=== PATIENT | female | born 1965 | race Caucasian/White ===

== ENCOUNTER 2017-04-23 13:07 | Outpatient (CLI) | payer BC | END 2017-04-23 13:08 | disposition home or self-care (01) | LOC: BICMAMMO 13:07 | PROVIDERS: ATTEND Family Medicine | DX: Z12.31 Encounter for screening mammogram for malignant neoplasm of breast (principal) | CPT/HCPCS: 77063; 77067 ==

== ENCOUNTER 2020-05-12 12:56 | Outpatient (CLI) | payer BC ==
--- NOTE | 2020-05-12 13:38 | MMO ---
Bilateral MAMMO Bilat Screen [facility]. CLINICAL HISTORY: Patient is 54 years old and is seen for screening. The patient has no family history of breast cancer. The patient has no personal history of cancer. The patient has a history of right needle biopsy in 2012 - benign. VIEWS: The views performed were: bilateral craniocaudal with tomosynthesis and bilateral mediolateral oblique with tomosynthesis. FILMS COMPARED: The present examination has been compared to prior imaging studies performed at [facility] on 04/23/2017, 04/24/2018 and 04/28/2019, and at [facility] on 04/09/2016. This study has been interpreted with the assistance of computer-aided detection. MAMMOGRAM FINDINGS: There are scattered fibroglandular densities. There is a stable nodule seen in the right breast. There are no suspicious masses, suspicious calcifications, or new areas of architectural distortion. IMPRESSION: THERE IS NO MAMMOGRAPHIC EVIDENCE OF MALIGNANCY. A ROUTINE FOLLOW-UP MAMMOGRAM IN 1 YEAR IS RECOMMENDED. THE RESULTS OF THIS EXAM WERE SENT TO THE PATIENT. ACR BI-RADS Category 2 - Benign finding MAMMOGRAPHY NOTE: 1. A negative mammogram report should not delay a biopsy if a dominant of clinically suspicious mass is present. 2. Approximately 10% to 15% of breast cancers are not detected by mammography. 3. Adenosis and dense breasts may obscure an underlying neoplasm. Reported by: LANCE CLOUD MD Electonically Signed: [id number]
== END 2020-05-12 12:57 | disposition home or self-care (01) ==
LOC: BICMAMMO 12:56
PROVIDERS: ATTEND Family Medicine
DX: Z12.31 Encounter for screening mammogram for malignant neoplasm of breast (principal); Z91.89 Other specified personal risk factors, not elsewhere classified
CPT/HCPCS: 77063; 77067

== ENCOUNTER 2021-01-12 09:35 | Outpatient (CLI) | payer BC ==
[2021-01-12 11:38] LABS: Hemoglobin 13.2 g/dL (12.0-15.5); Mean Corpuscular Volume 93.6 fl (81.6-98.3); Mean Platelet Volume 10.2 fl (7.4-10.4); Platelet Count 245 10x3/uL (150-450); White Blood Cell (WBC) Count 6.9 10x3/uL (3.5-10.5)
[2021-01-12 11:52] LABS: Anion Gap 13 mmol/L (10-20); BUN (Urea Nitrogen) 11 mg/dL (9.8-20.1); Calc. Creatinine Clearance 0 mL/min (70-130); Calcium 10.2 mg/dL (7.8-10.44); Carbon Dioxide 27 mmol/L (22-29); Chloride 106 mmol/L (98-107); Glucose 81 mg/dL (70-105); Potassium 5.1 mmol/L (3.5-5.1); Sodium 141 mmol/L (136-145)
[2021-01-12 11:54] LABS: Bilirubin Neg (Negative); Blood, Urine Negative (Negative); Clarity Clear (Clear); Glucose, Urine (Dipstick) Normal (Negative); Ketone, Urine Negative (Negative); Leukocyte 25 (Negative); Nitrite Negative (Negative); Protein, Urine (Dipstick) Negative (Neg-Trace); Specific Gravity, Urine 1.005 (1.002-1.036); Urobilinogen Normal mg/dL (Less than 2); pH, Urine 6.5 (5.0-9.0)
[2021-01-12 12:29] LABS: Bacteria/HPF None Seen HPF (None Seen); RBC/HPF 0-3 HPF (0-3); Squamous Epithelial 0-3 HPF (0-3); WBC/HPF 0-3 HPF (0-3)
[2021-01-13 00:23] LABS: SARS-CoV-2 PCR by NAA Not Detected (NotDetected)
== END 2021-01-12 09:36 | disposition home or self-care (01) ==
LOC: LABBT 09:35
PROVIDERS: ATTEND Urology
DX: Z01.818 Encounter for other preprocedural examination (principal); N35.92 Unspecified urethral stricture, female; Z20.822 Contact with and (suspected) exposure to COVID-19
CPT/HCPCS: 80048; 81001; 85027; 87086; 93005; 93010; U0003; U0005

== ENCOUNTER 2021-01-17 06:21 | Day surgery (SDC) | payer BC ==
[2021-01-16 13:15] VITALS: BMI 20.9
[2021-01-17] MEDS ORDERED: Levofloxacin 500 mg/D5W 100 ml Premix Bag ONE (07:34)
[2021-01-17] MEDS ORDERED: Fentanyl 100 MCG/2 ML VIAL ONE (08:05)
[2021-01-17] MEDS ORDERED: Ketorolac Tromethamine 30 MG/ML VIAL ONE (08:19)
[2021-01-17] MEDS ORDERED: PROPOFOL 200 MG/20 ML VIAL ONE (08:19)
[2021-01-17] MEDS ORDERED: Lidocaine 1% PF 5 ML VIAL ONE (08:19)
[2021-01-17] MEDS ORDERED: Dexamethasone 20 MG/5 ML VIAL ONE (08:19)
[2021-01-17] MEDS ORDERED: Ondansetron PF 4 MG/2 ML Vial ONE (08:19)
[2021-01-17] MEDS ORDERED: ePHEDrine 50 MG/ML VIAL ONE (08:19)
[2021-01-17] MEDS ORDERED: Oxybutynin 5 MG TAB ONE (09:09)
[2021-01-17] MEDS ORDERED: Phenazopyridine HCl 100 MG TAB ONE (09:09)
[2021-01-17] MEDS ORDERED: HYDROcodone/Acetaminophen 5/325 mg Tablet ONE (10:28)
== END 2021-01-17 11:08 | disposition home or self-care (01) ==
LOC: SDC 06:21
PROVIDERS: ATTEND Urology
PROC: 0T7B8ZZ Dilation of Bladder, Via Natural or Artificial Opening Endoscopic (ICD-10-PCS; principal; 2021-01-17)
DX: N30.80 Other cystitis without hematuria (principal); N35.92 Unspecified urethral stricture, female; N32.81 Overactive bladder; N95.2 Postmenopausal atrophic vaginitis; E55.9 Vitamin D deficiency, unspecified; Z79.899 Other long term (current) drug therapy
CPT/HCPCS: J1100; J1885; J1956; J2405; J2704; J3010; J3490

== ENCOUNTER 2021-05-15 10:04 | Outpatient (CLI) | payer BC | END 2021-05-15 10:05 | disposition home or self-care (01) | LOC: BICMAMMO 10:04 | PROVIDERS: ATTEND Family Medicine | DX: Z12.31 Encounter for screening mammogram for malignant neoplasm of breast (principal); Z91.89 Other specified personal risk factors, not elsewhere classified | CPT/HCPCS: 77063; 77067 ==

== ENCOUNTER 2022-07-03 12:28 | Outpatient (CLI) | payer BC | END 2022-07-03 12:29 | disposition home or self-care (01) | LOC: BICMAMMO 12:28 | PROVIDERS: ATTEND Family Medicine | DX: Z12.31 Encounter for screening mammogram for malignant neoplasm of breast (principal); Z91.89 Other specified personal risk factors, not elsewhere classified | CPT/HCPCS: 77063; 77067 ==

== ENCOUNTER 2022-07-23 14:17 | Outpatient (CLI) | payer BC | END 2022-07-23 14:18 | disposition home or self-care (01) | LOC: ULT 14:17 | PROVIDERS: ATTEND Family Medicine | DX: R60.0 Localized edema (principal); R59.1 Generalized enlarged lymph nodes | CPT/HCPCS: 76999 ==

== ENCOUNTER 2022-08-10 07:46 | Outpatient (CLI) | payer BC ==
[2022-08-10] MEDS ORDERED: Iopamidol 370 76% 100 ML VIAL ONE (09:53)
== END 2022-08-10 07:47 | disposition home or self-care (01) ==
LOC: CT 07:46
PROVIDERS: ATTEND Family Medicine
DX: R59.0 Localized enlarged lymph nodes (principal); R93.89 Abnormal findings on diagnostic imaging of other specified body structures; J39.2 Other diseases of pharynx
CPT/HCPCS: 70491; 82565; Q9967

== ENCOUNTER 2022-08-27 08:19 | Outpatient (CLI) | payer BC | END 2022-08-27 08:20 | disposition home or self-care (01) | LOC: LABBT 08:19 | PROVIDERS: ATTEND Specialist | DX: Z01.818 Encounter for other preprocedural examination (principal); K14.8 Other diseases of tongue | CPT/HCPCS: 85014; 93005; 93010 ==

== ENCOUNTER 2022-08-30 06:23 | Day surgery (SDC) | payer BC ==
[2022-08-27 08:55] VITALS: BMI 19.3
[2022-08-30] MEDS ORDERED: Midazolam HCl 2 mg/2 ml Vial ONE (06:40)
[2022-08-30] MEDS ORDERED: fentaNYL PF 100 MCG/2 ML SYRINGE ONE (06:41)
[2022-08-30] MEDS ORDERED: EPINEPHrine 1 MG/ML AMP ONE (06:42)
[2022-08-30] MEDS ORDERED: Rocuronium Bromide 10 MG/ML (10ML VIAL) ONE (07:59)
[2022-08-30] MEDS ORDERED: Dexamethasone 20 MG/5 ML VIAL ONE (07:59)
[2022-08-30] MEDS ORDERED: Ondansetron PF 4 MG/2 ML Vial ONE (07:59)
[2022-08-30] MEDS ORDERED: Lidocaine 1% PF 5 ML VIAL ONE (07:59)
[2022-08-30] MEDS ORDERED: PROPOFOL 200 MG/20 ML VIAL ONE (07:59)
[2022-08-30] MEDS ORDERED: Bupivacaine/Epinephrine 0.25% 30 ML VIAL ONE (08:24)
[2022-08-30] MEDS ORDERED: SUGAMMADEX SODIUM 200 MG/2 ML VIAL ONE (08:40)
== END 2022-08-30 11:03 | disposition home or self-care (01) ==
LOC: SDC 06:23
PROVIDERS: ATTEND Specialist
PROC: 0CBM8ZX Excision of Pharynx, Via Natural or Artificial Opening Endoscopic, Diagnostic (ICD-10-PCS; principal; 2022-08-30)
DX: J35.01 Chronic tonsillitis (principal); M26.19 Other specified anomalies of jaw-cranial base relationship; Z79.899 Other long term (current) drug therapy
CPT/HCPCS: 88305; 88312; 88342; J0171; J1100; J2250; J2405; J2704

== ENCOUNTER 2022-10-11 12:52 | Day surgery (SDC) | payer BC ==
[2022-10-11 15:34] VITALS: BP 116/40
== END 2022-10-11 15:00 | disposition home or self-care (01) ==
LOC: CT 12:52
PROVIDERS: ATTEND Specialist
DX: R59.0 Localized enlarged lymph nodes (principal)
CPT/HCPCS: 10005; 88305

== ENCOUNTER 2025-02-04 06:55 | Day surgery (SDC) | payer BC ==
[2025-02-03 13:18] VITALS: BMI 20.1
[~2025-02-04 06:55] MED LIST: Fluorouracil 100 MG, Enoxaparin 25 MG, EPINEPHrine 0.3 MG in Ophthalmic Irrigation Solu... IRR SCH
[2025-02-04] MEDS ORDERED: Lidocaine 1% PF 5 ML VIAL ONE ×2 (08:12→08:45)
[2025-02-04] MEDS ORDERED: PROPOFOL 20 ML ONE (08:12)
[2025-02-04] MEDS ORDERED: Cyclopentolate 1% Opth Drop 2 ML BOT ONE (08:16)
[2025-02-04] MEDS ORDERED: Lidocaine 4% PF 5 ML AMP ONE (08:45)
[2025-02-04] MEDS ORDERED: CEFAZOLIN 1 GM VIAL ONE (08:45)
[2025-02-04] MEDS ORDERED: TISSUEBLUE 0.5 ML SYRINGE IO ONE (08:45)
[2025-02-04] MEDS ORDERED: Maxitrol 0.1% Opth Oint 3.5 GM TUBE ONE (08:45)
== END 2025-02-04 10:22 | disposition home or self-care (01) ==
LOC: SDC 06:55
PROVIDERS: ATTEND Ophthalmology Retina Specialist
DX: H35.372 Puckering of macula, left eye (principal); Z98.41 Cataract extraction status, right eye; Z98.42 Cataract extraction status, left eye; Z90.89 Acquired absence of other organs; Z90.710 Acquired absence of both cervix and uterus
CPT/HCPCS: J0166; J0690; J1650; J2250; J2704; J3010; J3490; J9190